=== PATIENT | female | born 1975 | race Caucasian/White ===

== ENCOUNTER → 2018-03-30 | Outpatient (CLI) | payer OTHER ==
[~2018-03-30] MED LIST: GADOBUTROL 10 MMOL/10 ML PFS ONE; METF500T17 PO
== END | disposition home or self-care (01) ==
LOC: CFH 10:16
PROVIDERS: ATTEND Registered Nurse
DX: G43.711 Chronic migraine without aura, intractable, with status migrainosus (principal); Z88.2 Allergy status to sulfonamides
CPT/HCPCS: 70553; A9585